=== PATIENT | male | born 1960 | race African-American/Black ===

== ENCOUNTER 2019-08-13 19:25 | Emergency (ER) | payer MEDICAID ==
[~2019-08-13] VITALS: Ht 182.9 cm; Wt 141.5 kg
[2019-08-13] MEDS ORDERED: BENAZEPRIL HCL10 MG ORAL (19:38)
[2019-08-13] MEDS ORDERED: FLOMAX0.4 MG ORAL (19:38)
[2019-08-13] MEDS ORDERED: ASPIR 8181 MG ORAL (19:38)
[2019-08-13 19:40] VITALS: BP 159/91
--- NOTE | 2019-08-13 19:40 | NUR ---
ED Nurse Note: PATIENT AMBULATED TO ED C/O PAINFUL URINATION X4 DAYS AND HEMATURIA X2 DAYS. PT HAS HISTORY OF TESTICULAR TORSION, BPH. ALERT AND ORIENTED, NO SOB. AFEBRILE. VSS.
[2019-08-13] MEDS ORDERED: Phenazopyridine 200mg tab ORAL ONE (20:00)
[2019-08-13 20:15] LABS: APPEARANCE,URINE CLOUDY; BILIRUBIN, URINE NEGATIVE (NEGATIVE); GLUCOSE, URINE (UA) NEGATIVE (NEGATIVE); KETONES,URINE NEGATIVE (NEGATIVE); LEUKOCYTE ESTERASE ,URINE 3+ (NEGATIVE); NITRITE,URINE NEGATIVE (NEGATIVE); PH,URINE 6.5 (4.5-8.0); PROTEIN,URINE 2+ (NEGATIVE); UROBILINOGEN,URINE NORMAL MG/DL (0.0-1.0)
[2019-08-13] MEDS ORDERED: Lidocaine 1% MPF 10mg/ml 5ml INJ ONE (20:15)
[2019-08-13 20:16] LABS: COLOR,URINE YELLOW
--- NOTE | 2019-08-13 20:18 | Emergency Room Report ---
History of Present Illness General Chief Complaint: Male Urogenital Problems Source: Patient Present Illness HPI 59 YO Male presents to the ED complaining of 6/10 in severity dysuria, hematuria , green discharge x 4 days. Pt. denies testicular pain or swelling. Patient denies fevers, chills, swollen tender lymph nodes or joint pain. He denies low back pain, rashes or genital sores. Patient does report recent intercourse with new partner however he states he was wearing a condom. Patient states he had acute onset of his symptoms 2 days post sexual activity. Denies abdominal pain or tenderness. Denies back pain. Allergies: Coded Allergies: No Known Allergies (Unverified , 08/13/19) Patient History Past Medical History: see triage record Past Surgical History: none Pertinent Family History: none Reviewed Nursing Documentation: PMH: Agreed; PSxH: Agreed Nursing Documentation-PMH Past Medical History: No History, Except For Hx Hypertension: Yes Review of Systems All Other Systems: negative except mentioned in HPI Physical Exam Vital Signs Date Time Temp Pulse Resp B/P (MAP) Pulse Ox O2 Delivery O2 Flow Rate FiO2 08/13/19 19:33 98.8 85 14 159/100 (119) 97 Room Air Sp02 EP Interpretation: reviewed, normal General Appearance: no apparent distress, alert, GCS 15, non-toxic Head: normocephalic, atraumatic Eyes: bilateral eye normal inspection, bilateral eye PERRL ENT: hearing grossly normal, normal voice Neck: full range of motion Respiratory: lungs clear, normal breath sounds, speaking full sentences Cardiovascular #1: regular rate, rhythm Gastrointestinal: normal bowel sounds, non tender, soft, non-distended, no guarding Genitourinary: normal inspection, no CVA tenderness, penis normal - no obvious d/c noted, no rashes, no lesions, no vessicles Musculoskeletal: back normal, gait/station normal, normal range of motion, non- tender Neurologic: alert, oriented x3, responsive, motor strength/tone normal, sensory intact, speech normal, grossly normal Psychiatric: judgement/insight normal Skin: no rash Lymphatic: no adenopathy Medical Decision Making PA Attestation Dr. Dykes is my supervising Physician whom patient management has been discussed with. Diagnostic Impression: Primary Impression: Urethritis ER Course 59 YO Male presents to the ED complaining of 6/10 in severity dysuria, hematuria , green discharge x 4 days. Pt. denies testicular pain or swelling. Patient denies fevers, chills, swollen tender lymph nodes or joint pain. He denies low back pain, rashes or genital sores. Patient does report recent intercourse with new partner however he states he was wearing a condom. Patient states he had acute onset of his symptoms 2 days post sexual activity. Denies abdominal pain or tenderness. Denies back pain. Ddx considered but are not limited to UTi , Urethritis, LGV, STI, Stone, Cystitis, prostatitis Software Systems Architect for PE was: ZOE Baker Vital signs: are WNL, pt. is afebrile H&PE are most consistent with Urethritis-- will treat clinically ORDERS: - UA : positive for UTI: Presence of moderate bacteria with significant increase in inflammatory markers. ED INTERVENTIONS: -250mg Rocephin IM -I do not identify an emergent condition at this time. With current presentation , pt. is stable for close outpatient follow up and conservative treatment. D/ w pt. to return promptly to ED with worsening or new symptoms.- Pt. verbalizes' understanding and agreement with proposed treatment plan.proposed treatment plan. DISCHARGE: At this time pt. is stable for d/c to home. Will provide printed patient care instructions, and any necessary prescriptions. Care plan and follow up instructions have been discussed with the patient prior to discharge. Labs Test 08/13/19 20:05 Urine Color Yellow Urine Appearance Cloudy Urine pH 6.5 (4.5-8.0) Urine Specific [place] 1.010 (1.005-1.035) Urine Protein 2+ (NEGATIVE) Urine Glucose (UA) Negative (NEGATIVE) Urine Ketones Negative (NEGATIVE) Urine Blood 3+ (NEGATIVE) Urine Nitrite Negative (NEGATIVE) Urine Bilirubin Negative (NEGATIVE) Urine Urobilinogen Normal MG/DL (0.0-1.0) Urine Leukocyte Esterase 3+ (NEGATIVE) Urine RBC 5-10 /HPF (0 - 0) Urine WBC Tntc /HPF (0 - 0) Urine Squamous Epithelial Cells Occasional /LPF Urine Bacteria Moderate /HPF (NONE) Urine Mucus Few /LPF (NONE/OCC) Last Vital Signs Date Time Temp Pulse Resp B/P (MAP) Pulse Ox O2 Delivery O2 Flow Rate FiO2 08/13/19 19:33 98.8 85 14 159/100 (119) 97 Room Air Disposition: HOME, SELF-CARE Condition: Stable Scripts Doxycycline Hyclate* (VIBRAMYCIN*) 100 Mg Capsule 100 MG ORAL EVERY 12 HOURS for 7 Days, #14 CAP 0 Refills Prov: Kavita Bravo 08/13/19 Cephalexin* (KEFLEX*) 500 Mg Capsule 500 MG ORAL EVERY 12 HOURS for 7 Days, #14 CAP 0 Refills Prov: Kavita Bravo 08/13/19 Patient Instructions: Urethritis, Adult Additional Instructions: Take medications as directed. MAKE SURE YOUR PARTNERS GET TREATED WITH ANTIBIOTICS to prevent becoming re- infected No intercourse for 7-10 days, as you are potentially infectious and can spread the bacterial infection. Follow up with PCP in 3-5 days Return sooner to ED if new symptoms occur, or current symptoms become Kavita Bravo Aug 13, 2019 20:18
[2019-08-13] MEDS ORDERED: VIBRAMYCIN100 MG ORAL (20:34)
[2019-08-13] MEDS ORDERED: CEPHALEXIN500 MG ORAL (20:34)
[2019-08-13 20:42] VITALS: BP 159/91
--- NOTE | 2019-08-13 20:42 | NUR ---
ED Nurse Note: Pt cleared by ERMD for discharge. DC instructions/prescription was given and explained to pt and verbalized understanding of teachings. All medical deviecs such as ID band removed. Pt is AAO x4, ambulatory and left with all personal belongings.
== END 2019-08-13 20:42 | disposition home or self-care (01) ==
LOC: EMR 20:15
DX: N34.2 Other urethritis (principal); I10 Essential (primary) hypertension
CPT/HCPCS: 81003; 87086; 96372; 96374; J0696; Z7502; 99284

== ENCOUNTER 2020-05-05 23:49 | Emergency (ER) | payer MEDICAID ==
[~2020-05-05] VITALS: Ht 182.9 cm; Wt 149.7 kg
[~2020-05-05 23:49] MED LIST: ASPIR 8181 MG ORAL; BENAZEPRIL HCL10 MG ORAL; CEPHALEXIN500 MG ORAL; FLOMAX0.4 MG ORAL; VIBRAMYCIN100 MG ORAL
[2020-05-06] MEDS ORDERED: Azithromycin 250mg tab ORAL ONE (00:30)
[2020-05-06] MEDS ORDERED: Lidocaine 1% MPF 10mg/ml 5ml INJ ONE (00:30)
--- NOTE | 2020-05-06 00:44 | Emergency Room Report ---
History of Present Illness General Chief Complaint: Male Urogenital Problems Source: Patient Present Illness HPI This is a 60-year-old male with a history of high blood pressure. He presents with chief complaint of urethral discharge. Onset for last 4 to 5 days. Similar symptom in the past. He is sexually active. He claimed that he use condoms. Discharge is whitish in nature. No fever chills but no joint pain. Allergies: Coded Allergies: No Known Allergies (Unverified , 05/06/20) COVID-19 Screening Contact w/high risk pt: No Experienced COVID-19 symptoms?: No COVID-19 Testing performed PRODUCT SUPPORT MANAGER: No Patient History Past Medical History: see triage record, old chart reviewed Past Surgical History: none Pertinent Family History: none Social History: Denies: smoking Immunizations: other Reviewed Nursing Documentation: PMH: Agreed; PSxH: Agreed Nursing Documentation-PMH Hx Hypertension: Yes Review of Systems Eye: Denies: eye pain, blurred vision ENT: Denies: ear pain, nose congestion, throat swelling Respiratory: Denies: cough, shortness of breath Cardiovascular: Denies: chest pain, palpitations Gastrointestinal: Denies: abdominal pain, diarrhea, nausea, vomiting Genitourinary: Reports: discharge Musculoskeletal: Denies: back pain, joint pain Skin: Denies: rash Neurological: Denies: headache, numbness Endocrine: Denies: increased thirst, increased urine Hematologic/Lymphatic: Denies: easy bruising All Other Systems: negative except mentioned in HPI Physical Exam Vital Signs Date Time Temp Pulse Resp B/P (MAP) Pulse Ox O2 Delivery O2 Flow Rate FiO2 05/06/20 00:08 99.3 78 18 167/105 (125) 96 Room Air Vitals with high blood pressure Sp02 EP Interpretation: reviewed, normal General Appearance: well appearing, no apparent distress, alert, obese Head: normocephalic, atraumatic Eyes: bilateral eye PERRL, bilateral eye EOMI ENT: hearing grossly normal, normal pharynx Neck: full range of motion, supple, no meningismus Respiratory: chest non-tender, lungs clear, normal breath sounds Cardiovascular #1: regular rate, rhythm, no murmur Gastrointestinal: normal bowel sounds, non tender, no mass, no organomegaly, no bruit, non-distended Genitourinary: scrotum normal, other - Clearish discharge Musculoskeletal: back normal, normal range of motion, gait/station normal Psychiatric: mood/affect normal Medical Decision Making Diagnostic Impression: Primary Impression: Urethritis Additional Impression: Hypertension Qualified Codes: I10 - Essential (primary) hypertension ER Course Patient with urethritis. No evidence of systemic infection. Will discharge home. Recommend outpatient testing for HIV, hepatitis and, syphilis and other STDs. Last Vital Signs Date Time Temp Pulse Resp B/P (MAP) Pulse Ox O2 Delivery O2 Flow Rate FiO2 05/06/20 00:08 99.3 78 18 167/105 (125) 96 Room Air Status: improved Disposition: HOME, SELF-CARE Condition: Stable Referrals: JOSELIN GOMEZ,REFERRING (PCP) Patient Instructions: Urethritis, Adult Additional Instructions: Have your partner treated. Recommend outpatient testing for HIV, hepatitis, syphilis and other STDs. Return if worse. Wes Salguero MD May 06, 2020 00:44
[2020-05-06 00:50] VITALS: BP 158/98
== END 2020-05-06 00:50 | disposition home or self-care (01) ==
LOC: EMR 05-06 00:20
DX: N34.2 Other urethritis (principal); I10 Essential (primary) hypertension
CPT/HCPCS: 96372; 96374; J0696; Q0144; Z7502; 99284